=== PATIENT | female | born 1970 | race American Indian/Alaskan Native ===

== ENCOUNTER 2017-10-17 16:02 | Emergency (ER) | payer OTHER ==
[2017-10-17 16:03] VITALS: BMI 19.6
[2017-10-17 16:30] VITALS: O2SAT 100
[2017-10-17] MEDS ORDERED: Sodium Chloride 0.9% 1,000 ML IV ONE (16:53)
--- NOTE | 2017-10-17 16:57 | C.PDOC ---
History Of Present Illness Patient presents to ED c/o suprapubic cramping and dark vaginal spotting since yesterday (3 total episodes). Patient is , estimates she is 12 weeks (LMP 07/24/17). She denies vomiting, diarrhea, dysuria, fever, chest pain, SOB. PMhx of HTN, anemia Time Seen by Provider: 10/17/17 16:37 Chief Complaint (Nursing): Abdominal Pain History Per: Patient History/Exam Limitations: no limitations Onset/Duration Of Symptoms: Days (2) Current Symptoms Are (Timing): Still Present Severity: Mild Location Of Pain/Discomfort: Suprapubic Quality Of Discomfort: Cramping, "Pain" Abnormal Vaginal Bleeding: Yes Past Medical History Reviewed: Historical Data, Nursing Documentation, Vital Signs Vital Signs: Last Vital Signs Temp 98.8 F 10/17/17 18:52 Pulse 66 10/17/17 18:52 Resp 16 10/17/17 18:52 BP 135/94 H 10/17/17 18:52 Pulse Ox 100 10/17/17 19:03 - Medical History PMH: Anemia, HTN - [facility] Procedures FALLOPIAN TUBE INSUFFLAT (05/11/14) UTERINE LES DESTRUCT NEC (05/11/14) Family History: States: No Known Family Hx - Social History Hx Alcohol Use: No Hx Substance Use: No - Immunization History Hx Tetanus Toxoid Vaccination: Yes Hx Influenza Vaccination: Yes (2014) Hx Pneumococcal Vaccination: No Review Of Systems Constitutional: Negative for: Fever, Chills Cardiovascular: Negative for: Chest Pain, Palpitations Respiratory: Negative for: Shortness of Breath Gastrointestinal: Negative for: Nausea, Vomiting, Abdominal Pain, Diarrhea Genitourinary: Positive for: Vaginal Bleeding (mild spotting ), Pelvic Pain ( cramping ). Negative for: Dysuria, Vaginal Discharge Physical Exam - Physical Exam Appears: Well, Non-toxic, No Acute Distress Skin: Normal Color, Warm, Dry Oral Mucosa: Moist Cardiovascular: Rhythm Regular Respiratory: Normal Breath Sounds, No Rales, No Rhonchi, No Wheezing Gastrointestinal/Abdominal: Bowel Sounds, Soft, Tenderness (mild suprapubic TTP , (-) McBurney's) Back: Normal Inspection, No CVA Tenderness Neurological/Psych: Oriented x3 ED Course And Treatment - Laboratory Results Result Diagrams: 10/17/17 17:08 10/17/17 17:08 O2 Sat by Pulse Oximetry: 100 (RA) Pulse Ox Interpretation: Normal - CT Scan/US transvaginal US Other Rad Studies (CT/US): Read By Radiologist, Radiology Report Reviewed CT/US Interpretation: Accession No. : [id number]. Patient Name / ID : MARGARET BARNHARTENCE / [id number]. Exam Date : 10/17/2017 17:27:16 ( Approved ). Study Comment : Sex / Age : F / 47Y. Creator : Michael Isabel MD. Dictator : Michael Isabel MD. Slot Machine Repairer : Local Bulk Driver : Michael Isabel MD. Approver2 : Report Date : 10/17/2017 18:45:46. My Comment : . Date of service: 10/17/2017. PROCEDURE: First trimester ultrasound. HISTORY: , VAGINAL BLEEDING. Prior miscarriages (2 ). Beta HCG results: 7115.50 units. COMPARISON: None. TECHNIQUE: Standard protocol for this study/examination. FINDINGS: Gestational sac identified with a mean gestational age of 9 weeks. . Please note the gestational sac is deformed. [place]-rump length 1.86 cm corresponds to gestational age of 8 weeks 3 days. Cardiac activity NOT DOCUMENTED. age based on LMP 12 weeks 1 day. age based on gestational sac measurement 8 weeks 5 days. Uterine measurements 8.9 x 10.4 x 15.8 cm. Enlarged heterogeneous uterus with 2 separate and distinct fibroids. Intramural fibroid in the fundus measures 1.7 x 1.4 cm. Intramural fibroid lower uterine segment 3.6 x 3.2 cm. Closed cervix 4.09 cm. Right ovary 1.1 x 2.5 cm. Left ovary 1.9 x 3.1 cm. Simple cyst 9 x 10 mm. IMPRESSION: Evidence of intrauterine demise. Cardiac activity is not apparent. The gestational sac is deformed partially collapsed. Additional benign and/or incidental findings described above. Progress Note: Blood work, UA, transvaginal US ordered and reviewed. Patient given IV NS bolus. Reevaluation Time: 19:10 Reassessment Condition: Improved (Patient resting comfortably, in no current pain/distress. Explained all results and findings to patient. She understands she needs to follow up with her ship worker in 1-2 days, and that she should return to ED if symptoms become severe.) - Physician Consult Information Physician Contacted: Lydia Gandara Outcome Of Conversation: Discussed patient with ob call ship worker, recommends outpatoent follow up with ship worker, no intervention at this time. Disposition Counseled Patient/Family Regarding: Studies Performed, Diagnosis, Need For Followup, Rx Given - Disposition Referrals: [facility] [Outside] [facility] [Outside] Disposition: HOME/ ROUTINE Disposition Time: 19:10 Condition: STABLE Additional Instructions: FOLLOW UP WITH YOUR HOUSE WIRER WITHIN 1 WEEK USE PAIN MEDICATION NEEDED RETURN TO ER IF SYMPTOMS WORSEN Prescriptions: oxyCODONE/Acetaminophen [Percocet 5/325 mg Tab] 1 tab PO QID PRN #12 tab PRN Reason: Pain Instructions: Miscarriage (DC) Forms: [facility] (German), Work Excuse Print Language: WOLOF - Clinical Impression Clinical Impression: Missed , demise
[2017-10-17 17:03] LABS: SQUAMOUS EPITHIAL < 1 /hpf (0-5); URINE BACTERIA RARE (<OCC); URINE BILIRUBIN NEGATIVE (NEGATIVE); URINE CLARITY Clear (Clear); URINE COLOR Straw (YELLOW); URINE GLUCOSE (UA) NORMAL (Normal); URINE LEUKOCYTE ESTERASE NEG Leu/uL (Negative); URINE PROTEIN NEGATIVE (NEGATIVE); URINE UROBILINOGEN NORMAL mg/dL (0.2-1.0)
[2017-10-17 17:08] LABS: HCG,QUALITATIVE URINE POSITIVE (NEGATIVE)
[2017-10-17] MEDS ORDERED: Sodium Chloride 0.9% 1,000 ML ONE (17:11)
[2017-10-17 17:13] LABS: URINE BLOOD TRACE (NEGATIVE)
[2017-10-17 17:22] LABS: BASO % 0.3 % (0.0-2.0); EOS # 0.1 K/uL (0.0-0.7); EOS % 1.8 % (0.0-4.0); HEMOGLOBIN 12.1 g/dL (11.0-16.0); LYMPH # 1.4 K/uL (1.0-4.3); LYMPH % 32.7 % (20.0-40.0); MEAN CORPUSCULAR HEMOGLOBIN 28.9 pg (27.0-31.0); MEAN CORPUSCULAR HGB CONC 33.7 g/dL (33.0-37.0); MEAN PLATELET VOLUME 9.7 fL (7.2-11.7); MONO # 0.4 K/uL (0.0-0.8); NEUT # 2.5 K/uL (1.8-7.0); NEUT % 56.2 % (50.0-75.0); NRBC % 0.1 % (0.0-2.0); RBC 4.18 Mil/uL (3.80-5.20); WHITE BLOOD COUNT 4.4 K/uL (4.8-10.8)
[2017-10-17 17:33] LABS: MEAN CELL VOLUME 85.7 fL (81.0-99.0)
[2017-10-17 17:45] LABS: ALB/GLOB RATIO 1.4 (1.0-2.1); ALBUMIN 4.2 g/dL (3.5-5.0); ALT/SGPT 27 U/L (9-52); AST/SGOT 22 U/L (14-36); BLOOD UREA NITROGEN 8 mg/dL (7-17); CALCIUM 9.4 mg/dl (8.6-10.4); GFR AFRICAN-AMERICAN > 60; GFR NON-AFRICAN AMERICAN > 60
[2017-10-17 18:17] VITALS: RESP 16
--- NOTE | 2017-10-17 18:47 | US ---
Date of service: 10/17/2017 PROCEDURE: First trimester ultrasound HISTORY: , VAGINAL BLEEDING Prior miscarriages (2). Beta HCG results: 7115.50 units. COMPARISON: None TECHNIQUE: Standard protocol for this study/examination. FINDINGS: Gestational sac identified with a mean gestational age of 9 weeks. . Please note the gestational sac is deformed. [place]-rump length 1.86 cm corresponds to gestational age of 8 weeks 3 days. Cardiac activity NOT DOCUMENTED. age based on LMP 12 weeks 1 day. age based on gestational sac measurement 8 weeks 5 days. Uterine measurements 8.9 x 10.4 x 15.8 cm. Enlarged heterogeneous uterus with 2 separate and distinct fibroids. Intramural fibroid in the fundus measures 1.7 x 1.4 cm. Intramural fibroid lower uterine segment 3.6 x 3.2 cm. Closed cervix 4.09 cm. Right ovary 1.1 x 2.5 cm. Left ovary 1.9 x 3.1 cm. Simple cyst 9 x 10 mm. IMPRESSION: Evidence of intrauterine demise. Cardiac activity is not apparent. The gestational sac is deformed partially collapsed. Additional benign and/or incidental findings described above.
[2017-10-17 18:53] VITALS: BP 135/94; PULSE 66; TEMP 98.8
== END 2017-10-17 19:14 | disposition home or self-care (01) ==
LOC: C.ER 16:02
DX: O02.1 Missed abortion (principal)
CPT/HCPCS: 76805; 76817; 80053; 81001; 84702; 84703; 85025; 86850; 86900; 96360; 99284; J7030

== ENCOUNTER 2017-10-25 19:03 | Inpatient (IN) | payer OTHER ==
[2017-10-25 19:06] VITALS: BMI 19.6
[2017-10-25] MEDS ORDERED: Sodium Chloride 0.9% 1,000 ML IV ONE ×2 (19:56→21:35)
--- NOTE | 2017-10-25 19:56 | C.PDOC ---
History Of Present Illness The patient presents to the ED for evaluation of vaginal bleeding. Patient is currently around 12 weeks and her last menstrual period was on 07/24/17. Patient was evaluated in this ED for similar symptoms on 10/17/17 and underwent an ultrasound which showed likely demise. Patient returns to the ED because her bleeding has continued and she has some abdominal cramping. She denies fever, chills, nausea, vomiting. Time Seen by Provider: 10/25/17 19:56 Chief Complaint (Nursing): Female Genitourinary History Per: Patient History/Exam Limitations: no limitations Onset/Duration Of Symptoms: Days Current Symptoms Are (Timing): Still Present Severity: Moderate Pain Scale Rating Of: 3 Location Of Pain/Discomfort: Suprapubic Radiation Of Pain To:: None Quality Of Discomfort: Cramping Associated Symptoms: denies: Fever, Chills, Nausea, Vomiting Exacerbating Factors: None Alleviating Factors: None Last Bowel Movement: Today Recent travel outside of the [place]: No Additional History Per: Patient Abnormal Vaginal Bleeding: Yes Last Menstral Period: 07/24/2017 Past Medical History Reviewed: Historical Data, Nursing Documentation, Vital Signs Vital Signs: Last Vital Signs Temp 98.6 F 10/25/17 19:22 Pulse 93 H 10/25/17 19:22 Resp 20 10/25/17 19:22 BP 132/89 10/25/17 19:22 Pulse Ox 100 10/25/17 21:04 - Medical History PMH: Anemia, HTN Denies: Chronic Kidney Disease Surgical History: No Surg Hx - [facility] Procedures FALLOPIAN TUBE INSUFFLAT (05/11/14) UTERINE LES DESTRUCT NEC (05/11/14) Family History: States: Unknown Family Hx - Social History Hx Alcohol Use: No Hx Substance Use: No - Immunization History Hx Tetanus Toxoid Vaccination: Yes Hx Influenza Vaccination: Yes (2014) Hx Pneumococcal Vaccination: No Review Of Systems Constitutional: Negative for: Fever, Chills Cardiovascular: Negative for: Chest Pain, Palpitations Respiratory: Negative for: Cough, Shortness of Breath Gastrointestinal: Positive for: Abdominal Pain. Negative for: Nausea, Vomiting Genitourinary: Positive for: Vaginal Bleeding. Negative for: Dysuria, Frequency , Hematuria Musculoskeletal: Negative for: Back Pain Skin: Negative for: Rash, Lesions, Jaundice, Bruising Neurological: Negative for: Weakness, Numbness Physical Exam - Physical Exam Appears: Non-toxic, No Acute Distress Skin: Warm, Dry Head: Normacephalic Eye(s): bilateral: Normal Inspection Oral Mucosa: Moist Neck: Supple Chest: Symmetrical, No Deformity, No Tenderness Cardiovascular: Rhythm Regular, No Murmur Respiratory: No Rales, No Rhonchi, No Wheezing Gastrointestinal/Abdominal: Tenderness (suprapubic ), No Guarding, No Rebound Extremity: Normal ROM, Capillary Refill (less than 2 seconds ) Neurological/Psych: Oriented x3 Gait: Steady ED Course And Treatment - Laboratory Results Result Diagrams: 10/25/17 19:57 10/25/17 19:57 O2 Sat by Pulse Oximetry: 100 (on RA) Pulse Ox Interpretation: Normal Progress Note: Bloodwork, urinalysis, and OB Transvaginal US ordered and reviewed. Ampicillin IVP, Gentamicin IVP, and IV Fluids given. Disposition Discussed With DrDanielle: Any Foley Comment[facility] took over the care at 9:19PM Counseled Patient/Family Regarding: Studies Performed, Diagnosis - Disposition Disposition: HOSPITALIZED Disposition Time: 19:56 Condition: FAIR Forms: [facility] (Wallisian) - Clinical Impression Clinical Impression: Abdominal pain, Incomplete - Scribe Statement The provider has reviewed the documentation as recorded by the Scribe (Lyndsay Foley) Provider Attestation: All medical record entries made by the Scribe were at my direction and personally dictated by me. I have reviewed the chart and agree that the record accurately reflects my personal performance of the history, physical exam, medical decision making, and the department course for this patient. I have also personally directed, reviewed, and agree with the discharge instructions and disposition. Decision To Admit - Pt Status Changed To: Hospital Disposition Of: Inpatient - Admit Certification Admit to Inpatient:: After my assessment, the patient will require hospitalization for at least two midnights. This is because of the severity of symptoms shown, intensity of services needed, and/or the medical risk in this patient being treated as an outpatient. - InPatient: Physician Admission Certification:: After my assessment, the patient will require hospitalization for at least two midnights. This is because of the severity of symptoms shown, intensity of services needed, and/or the medical risk in this patient being treated as an outpatient. - . Bed Request Type: Regular Admitting Physician: Any Foley Patient Diagnosis: Abdominal pain, Incomplete
[2017-10-25 20:06] LABS: BASO % 0.6 % (0.0-2.0); EOS # 0.1 K/uL (0.0-0.7); EOS % 1.4 % (0.0-4.0); HEMOGLOBIN 8.4 g/dL (11.0-16.0); LYMPH # 1.5 K/uL (1.0-4.3); LYMPH % 22.9 % (20.0-40.0); MEAN CELL VOLUME 86.3 fL (81.0-99.0); MEAN CORPUSCULAR HEMOGLOBIN 29.9 pg (27.0-31.0); MEAN CORPUSCULAR HGB CONC 34.7 g/dL (33.0-37.0); MEAN PLATELET VOLUME 9.8 fL (7.2-11.7); MONO # 0.5 K/uL (0.0-0.8); NEUT # 4.4 K/uL (1.8-7.0); NEUT % 67.1 % (50.0-75.0); NRBC % 0.4 % (0.0-2.0); RBC 2.8 Mil/uL (3.80-5.20); RED CELL DISTRIBUTION WIDTH 15.3 % (11.5-14.5); WHITE BLOOD COUNT 6.6 K/uL (4.8-10.8)
[2017-10-25] MEDS ORDERED: AMPicillin 1 GM in Sodium Chloride 0.9% 100 ML IVPB STA (20:09)
[2017-10-25] MEDS ORDERED: Gentamicin 80 mg/2mL Inj. IVPB STA (20:10)
[2017-10-25 20:14] LABS: SQUAMOUS EPITHIAL 1 /hpf (0-5); URINE BILIRUBIN NEGATIVE (NEGATIVE); URINE BLOOD 3+ (NEGATIVE); URINE CLARITY Clear (Clear); URINE COLOR Yellow (YELLOW); URINE GLUCOSE (UA) NORMAL (Normal); URINE LEUKOCYTE ESTERASE 1+ Leu/uL (Negative); URINE PROTEIN NEGATIVE (NEGATIVE); URINE UROBILINOGEN NORMAL mg/dL (0.2-1.0)
[2017-10-25] MEDS ORDERED: Sodium Chloride 0.9% 250 ML IV ONE (20:24)
[2017-10-25 20:25] LABS: ALB/GLOB RATIO 1.4 (1.0-2.1); ALBUMIN 4.2 g/dL (3.5-5.0); ALT/SGPT 36 U/L (9-52); AST/SGOT 28 U/L (14-36); BLOOD UREA NITROGEN 11 mg/dL (7-17); CALCIUM 9.4 mg/dl (8.6-10.4); GFR AFRICAN-AMERICAN > 60; GFR NON-AFRICAN AMERICAN > 60
[2017-10-25 20:30] LABS: INR 1.1; PROTHROMBIN TIME 11.5 SECONDS (9.7-12.2)
[2017-10-25] MEDS ORDERED: GENTAMICIN IVPB ONE (20:30)
[2017-10-25] MEDS ORDERED: SODIUM CHLORIDE 0.9% IVPB ONE (20:30)
[2017-10-26 00:16] VITALS: RESP 20
--- NOTE | 2017-10-26 07:22 | CP.PCM.HP ---
History of Present Illness - History of Present Illness History of Present Illness: 47y/o with iocmplete abortoin 9 weeks decieded on conservatig manamgnet owever over past week has had increased bleedign pssing though clts and fever pt was adivsed to come to ER OB: [id number] SOLAR PANEL INSTALLATION SUPERVISOR: fibroids PMH: HTN, Anemia PSH: Myomecotmy FHS: non cotribotyr MEDS: none NKDASH:X negaive etohg/toboc durgs Present on Admission - Present on Admission Any Indicators Present on Admission: No Review of Systems - Review of Systems All systems: reviewed and no additional remarkable complaints except - Constitutional Constitutional: As Per HPI - EENT Eyes: As Per HPI - Breasts Breasts: As Per HPI - Gastrointestinal Gastrointestinal: As Per HPI - Genitourinary Genitourinary: As Per HPI - Reproductive: Female Reproductive:Female: As Per HPI - Menstruation Menstruation: Abnormal Vaginal Bleeding. absent: As Per HPI - Musculoskeletal Musculoskeletal: As Per HPI - Integumentary Integumentary: absent: As Per HPI, Acne, Alopecia, Bleeding Lesions, Change in Hair, Change in Nails, Change in Pigmentation, Changing Lesions, Dry Skin, Erythema, Furuncle, Hirsutism, Lesions, New Lesions, Non-Healing Lesions, Photosensitivity, Pruritus, Rash, Skin Pain, Skin Ulcer, Sores, Striae, Swelling , Unusual Bruising, Wounds, Jaundice, Other - Neurological Neurological: absent: As Per HPI, Abnormal Gait, Abnormal Hearing, Abnormal Movements, Abnormal Speech, Behavioral Changes, Burning Sensations, Confusion, Convulsions, Disequilibrium, Dizziness, Numbness, Focal Weakness, Frequent Falls , Headaches, Lack of Coordination, Loss of Vision, Memory Loss, Paresthesias, Radicular Pain, Restless Legs, Sensory Deficit, Syncope, Tingling, Tremor, Vertigo, Weakness, Other Visual Disturbances, Other - Psychiatric Psychiatric: absent: As Per HPI, Abnormal Sleep Pattern, Anhedonia, Anxiety, Auditory Hallucinations, Behavioral Changes, Change in Appetite, Change in Libido, Confusion, Depression, Difficulty Concentrating, Hallucinations, Homicidal Ideation, Hopelessness, Irritability, Memory Loss, Mood Swings, Panic Attacks, Paranoia, Suicidal Ideation, Visual Hallucinations, Tactile Hallucinations, Other Past Patient History - Infectious Disease Hx of Infectious Diseases: None - Tetanus Immunizations Tetanus Immunization: Unknown - Past Medical History & Family History Past Medical History?: Yes - Past Social History Smoking Status: Never Smoked - CARDIAC Hx Hypertension: Yes - PULMONARY Hx Respiratory Disorders: No - NEUROLOGICAL Hx Neurological Disorder: No - HEENT Hx HEENT Problems: Yes Other/Comment: Wears glasses - RENAL Hx Chronic Kidney Disease: No - ENDOCRINE/METABOLIC Hx Endocrine Disorders: No - HEMATOLOGICAL/ONCOLOGICAL Hx Anemia: Yes - INTEGUMENTARY Hx Dermatological Problems: No - MUSCULOSKELETAL/RHEUMATOLOGICAL Hx Falls: No - GASTROINTESTINAL Hx Gastrointestinal Disorders: No - GENITOURINARY/GYNECOLOGICAL Hx Genitourinary Disorders: No - PSYCHIATRIC Hx Substance Use: No - SURGICAL HISTORY Hx Surgeries: Yes Other/Comment: myomectomy - ANESTHESIA Hx Anesthesia: Yes Hx Anesthesia Reactions: No Meds Allergies/Adverse Reactions: Allergies Allergy/AdvReac Type Severity Reaction Status Date / Time No Known Allergies Allergy Verified 10/25/17 19:27 Physical Exam - Constitutional Appears: Well, Non-toxic - Head Exam Head Exam: ATRAUMATIC, NORMAL INSPECTION - Eye Exam Eye Exam: EOMI - ENT Exam ENT Exam: Mucous Membranes Moist, Normal Exam - Neck Exam Neck exam: Positive for: Normal Inspection - Respiratory Exam Respiratory Exam: Clear to Auscultation Bilateral, NORMAL BREATHING PATTERN - Cardiovascular Exam Cardiovascular Exam: +S1, +S2 - GI/Abdominal Exam GI & Abdominal Exam: Soft, Tenderness Additional comments: non guaridn no reoubdn tneder o rigdiyt - Exam External exam: NORMAL EXTERNAL EXAM Additional comments: External genital; blodo on perien Vagna; drak red blood clots cervix; 1cm dlated , NT UTeurs; non tende rANde; x/periena Gorsly normla, non tennder Results - Vital Signs Recent Vital Signs: Last Vital Signs Temp 97.6 F 10/26/17 06:33 Pulse 76 10/26/17 06:33 Resp 20 10/26/17 06:33 BP 108/76 10/26/17 06:33 Pulse Ox 100 10/26/17 06:33 - Labs Result Diagrams: 10/25/17 19:57 10/25/17 19:57 Labs: Laboratory Results - last 24 hr 10/25/17 10/25/17 10/25/17 19:57 19:57 19:57 WBC 6.6 RBC 2.80 L Hgb 8.4 L D Hct 24.2 L MCV 86.3 MCH 29.9 MCHC 34.7 RDW 15.3 H Plt Count 169 MPV 9.8 Neut % (Auto) 67.1 Lymph % (Auto) 22.9 [place] % (Auto) 8.0 Eos % (Auto) 1.4 Baso % (Auto) 0.6 Neut # (Auto) 4.4 Lymph # (Auto) 1.5 [place] # (Auto) 0.5 Eos # (Auto) 0.1 Baso # (Auto) 0.0 PT 11.5 INR 1.1 APTT 29 Sodium Potassium Chloride Carbon Dioxide Anion Gap BUN Creatinine Est GFR ( Amer) Est GFR (Non-Af Amer) Random Glucose Calcium Total Bilirubin AST ALT Alkaline Phosphatase Total Protein Albumin Globulin Albumin/Globulin Ratio Beta HCG, Quant Urine Color Yellow Urine Clarity Clear Urine pH 7.0 Ur Specific [place] 1.011 Urine Protein Negative Urine Glucose (UA) Normal Urine Ketones Negative Urine Blood 3+ H Urine Nitrate Negative Urine Bilirubin Negative Urine Urobilinogen Normal Ur Leukocyte Esterase 1+ H Urine WBC (Auto) 8 H Urine RBC (Auto) 13 H Ur Squamous Epith Cells 1 Blood Type Antibody Screen 10/25/17 10/25/17 19:57 19:57 WBC RBC Hgb Hct MCV MCH MCHC RDW Plt Count MPV Neut % (Auto) Lymph % (Auto) [place] % (Auto) Eos % (Auto) Baso % (Auto) Neut # (Auto) Lymph # (Auto) [place] # (Auto) Eos # (Auto) Baso # (Auto) PT INR APTT Sodium 139 Potassium 3.8 Chloride 102 Carbon Dioxide 27 Anion Gap 14 BUN 11 Creatinine 0.7 Est GFR ( Amer) > 60 Est GFR (Non-Af Amer) > 60 Random Glucose 96 Calcium 9.4 Total Bilirubin 0.6 AST 28 ALT 36 Alkaline Phosphatase 57 Total Protein 7.3 Albumin 4.2 Globulin 3.1 Albumin/Globulin Ratio 1.4 Beta HCG, Quant 634.41 Urine Color Urine Clarity Urine pH Ur Specific [place] Urine Protein Urine Glucose (UA) Urine Ketones Urine Blood Urine Nitrate Urine Bilirubin Urine Urobilinogen Ur Leukocyte Esterase Urine WBC (Auto) Urine RBC (Auto) Ur Squamous Epith Cells Blood Type A POSITIVE Antibody Screen Negative - Imaging and Cardiology US - abdomen Status: Image reviewed by me, Report reviewed by me Assessment & Plan (1) Incomplete Assessment and Plan: 1/ Admit to SOLAR PANEL INSTALLATION SUPERVISOR 2. NPO, IVF 3. Preo op labs 4. TVSU 5. R/b/a/i suctoin dc patient Status: Acute
[2017-10-26] MEDS ORDERED: Doxycycline 100 mg Inj ONE (07:35)
[2017-10-26] MEDS ORDERED: Oxytocin 10 Units/ml Inj ONE (07:36)
[2017-10-26] MEDS ORDERED: Propofol 10 mg/ml Inj (20 ML) ONE (07:43)
[2017-10-26] MEDS ORDERED: Midazolam 2 MG/2 ML VIAL ONE (07:43)
[2017-10-26] MEDS ORDERED: HYDROmorphone 0.5 mg/0.5 ml ISec IVP PRN ×2 (08:09→08:12)
[2017-10-26] MEDS ORDERED: Lactated Ringer's 1,000 ML IV SCH (08:15)
--- NOTE | 2017-10-26 08:42 | PCM.SURG1 ---
Surgeon's Initial Post Op Note - Surgeon's Notes Surgeon: Any Foley MD Brim Shaper: none Type of Anesthesia: General LMA Pre-Operative Diagnosis: Incomplete 12 weeks Operative Findings: 12 week size anterir utuer, cervil os dilated 3cm with moderate amouts of products at cervial os, 8 curved suction curretted used , no compliatins Post-Operative Diagnosis: same as above Operation Performed: Suction Dilation and UCrrettage Specimen/Specimens Removed: products of concpetoin Estimated Blood Loss: EBL {In ML}: 10 Blood Products Given: N/A Drains Used: No Drains Post-Op Condition: Good Date of Surgery/Procedure: 10/26/17 Time of Surgery/Procedure: 08:00
--- NOTE | 2017-10-26 08:44 | CP.PCM.DIS ---
Provider - Provider Date of Admission: 10/25/17 21:17 Attending physician: Any Foley MD Time Spent in preparation of Discharge (in minutes): 30 Diagnosis - Discharge Diagnosis (1) Incomplete Status: Acute Hospital Course - Lab Results Lab Results: Most Recent Lab Values WBC 6.6 K/uL (4.8-10.8) 10/25/17 19:57 RBC 2.80 Mil/uL (3.80-5.20) L 10/25/17 19:57 Hgb 8.4 g/dL (11.0-16.0) L D 10/25/17 19:57 Hct 24.2 % (34.0-47.0) L 10/25/17 19:57 MCV 86.3 fL (81.0-99.0) 10/25/17 19:57 MCH 29.9 pg (27.0-31.0) 10/25/17 19:57 MCHC 34.7 g/dL (33.0-37.0) 10/25/17 19:57 RDW 15.3 % (11.5-14.5) H 10/25/17 19:57 Plt Count 169 K/uL (130-400) 10/25/17 19:57 MPV 9.8 fL (7.2-11.7) 10/25/17 19:57 Neut % (Auto) 67.1 % (50.0-75.0) 10/25/17 19:57 Lymph % (Auto) 22.9 % (20.0-40.0) 10/25/17 19:57 [place] % (Auto) 8.0 % (0.0-10.0) 10/25/17 19:57 Eos % (Auto) 1.4 % (0.0-4.0) 10/25/17 19:57 Baso % (Auto) 0.6 % (0.0-2.0) 10/25/17 19:57 Neut # (Auto) 4.4 K/uL (1.8-7.0) 10/25/17 19:57 Lymph # (Auto) 1.5 K/uL (1.0-4.3) 10/25/17 19:57 [place] # (Auto) 0.5 K/uL (0.0-0.8) 10/25/17 19:57 Eos # (Auto) 0.1 K/uL (0.0-0.7) 10/25/17 19:57 Baso # (Auto) 0.0 K/uL (0.0-0.2) 10/25/17 19:57 PT 11.5 SECONDS (9.7-12.2) 10/25/17 19:57 INR 1.1 10/25/17 19:57 APTT 29 SECONDS (21-34) 10/25/17 19:57 Sodium 139 mmol/L (132-148) 10/25/17 19:57 Potassium 3.8 mmol/L (3.6-5.2) 10/25/17 19:57 Chloride 102 mmol/L (98-107) 10/25/17 19:57 Carbon Dioxide 27 mmol/L (22-30) 10/25/17 19:57 Anion Gap 14 (10-20) 10/25/17 19:57 BUN 11 mg/dL (7-17) 10/25/17 19:57 Creatinine 0.7 mg/dL (0.7-1.2) 10/25/17 19:57 Est GFR ( Amer) > 60 10/25/17 19:57 Est GFR (Non-Af Amer) > 60 10/25/17 19:57 Random Glucose 96 mg/dL (65-105) 10/25/17 19:57 Calcium 9.4 mg/dl (8.6-10.4) 10/25/17 19:57 Total Bilirubin 0.6 mg/dL (0.2-1.3) 10/25/17 19:57 AST 28 U/L (14-36) 10/25/17 19:57 ALT 36 U/L (9-52) 10/25/17 19:57 Alkaline Phosphatase 57 U/L (38-126) 10/25/17 19:57 Total Protein 7.3 g/dL (6.3-8.3) 10/25/17 19:57 Albumin 4.2 g/dL (3.5-5.0) 10/25/17 19:57 Globulin 3.1 gm/dL (2.2-3.9) 10/25/17 19:57 Albumin/Globulin Ratio 1.4 (1.0-2.1) 10/25/17 19:57 Beta HCG, Quant 634.41 mIU/ML 10/25/17 19:57 Urine Color Yellow (YELLOW) 10/25/17 19:57 Urine Clarity Clear (Clear) 10/25/17 19:57 Urine pH 7.0 (5.0-8.0) 10/25/17 19:57 Ur Specific [place] 1.011 (1.003-1.030) 10/25/17 19:57 Urine Protein Negative mg/dL (NEGATIVE) 10/25/17 19:57 Urine Glucose (UA) Normal mg/dL (Normal) 10/25/17 19:57 Urine Ketones Negative mg/dL (NEGATIVE) 10/25/17 19:57 Urine Blood 3+ (NEGATIVE) H 10/25/17 19:57 Urine Nitrate Negative (NEGATIVE) 10/25/17 19:57 Urine Bilirubin Negative (NEGATIVE) 10/25/17 19:57 Urine Urobilinogen Normal mg/dL (0.2-1.0) 10/25/17 19:57 Ur Leukocyte Esterase 1+ [place]/uL (Negative) H 10/25/17 19:57 Urine WBC (Auto) 8 /hpf (0-5) H 10/25/17 19:57 Urine RBC (Auto) 13 /hpf (0-3) H 10/25/17 19:57 Ur Squamous Epith Cells 1 /hpf (0-5) 10/25/17 19:57 Blood Type A POSITIVE 10/25/17 19:57 Antibody Screen Negative 10/25/17 19:57 Discharge Exam - Head Exam Head Exam: ATRAUMATIC, NORMAL INSPECTION - ENT Exam ENT Exam: Mucous Membranes Dry - Respiratory Exam Respiratory Exam: Clear to PA & Lateral, UNREMARKABLE - Cardiovascular Exam Cardiovascular Exam: REGULAR RHYTHM, +S1, +S2 - GI/Abdominal Exam GI & Abdominal Exam: Normal Bowel Sounds, Soft - Exam External exam: NORMAL EXTERNAL EXAM Speculum exam: NORMAL SPECULUM EXAM Discharge Plan - Follow Up Plan Condition: FAIR Disposition: HOME/ ROUTINE Additional Instructions: Nothng per vagian, no sex ,no douching no tamponx s 2 week if fever, heavy bleeidng moer than 2 pads/ hour go to ER also if lightheadnes dizzyness, chestp pain , sob
--- NOTE | 2017-10-26 09:03 | US ---
Pelvic ultrasound History: 12 weeks . demise. Comparison: Ultrasound dated 10/17/2017 Technique: Real-time sonography was performed through the pelvis utilizing transabdominal and transvaginal techniques. Findings: Uterus: 14.9 x 6.6 x 8.6 centimeters. Heterogeneous echotexture. Anteverted. Multiple heterogeneous lesions suggestive for fibroid lesions: Mid to lower uterine segment measuring 3.2 x 3.3 x 4.5 centimeters. Fundus measuring 1.8 x 1.5 x 1.6 centimeters. Fundus measuring 2.2 x 1.9 x 2.4 centimeters. Thickened and heterogeneous endometrium measuring 2.7 centimeters. Endometrium demonstrates increased vascularity which is concerning for retained products of conception. No intrauterine gestation is identified. No free fluid in the pelvic cul-de-sac. Right ovary: 2.8 x 1.4 x 2.3 centimeters. Normal flow. Left ovary: 2.4 x 1.6 x 2.4 centimeters. Normal flow. Heterogeneous cyst measuring 1.1 x 0.9 x 1.3 centimeters. Small amount of free fluid adjacent to the left ovary. Impression: No intrauterine gestation is identified. Endometrium is thickened measuring 2.7 centimeters. Endometrium is heterogeneous in echotexture with increased vascularity concerning for retained products of conception. Clinical correlation. Multiple intramural uterine fibroids, the largest of which measures 4.5 centimeters in the mid to lower uterine segment. Small amount of free fluid adjacent to the left ovary. Additional findings as above. Correlation with SENIOR PATROL AGENT consultation is recommended if clinically indicated. These findings were preliminarily reported by Dr. Daniel Santana from [employer] at 11:05 p.m. on 10/25/2017.
[2017-10-26 10:25] VITALS: BP 111/74; PULSE 83; TEMP 97; O2SAT 97
--- NOTE | 2017-10-26 20:56 | OP ---
Copied To: Any Foley MD Attending MD: Any Foley MD PROCEDURE DATE: 10/26/2017 SURGEON: Any Foley MD [employer] INSPECTOR: None. TYPE OF ANESTHESIA: General LMA. PREOPERATIVE DIAGNOSIS: Incomplete at 12 weeks. OPERATIVE FINDINGS: 12 weeks size anteverted uterus, cervical os dilated to 8 curved suction curette used. POSTOPERATIVE DIAGNOSIS: Incomplete at 12 weeks. COMPLICATION: None. OPERATION PERFORMED: Suction dilatation and curettage. SPECIMEN: Products of conception. ESTIMATED BLOOD LOSS: 10 mL. BLOOD PRODUCTS: None. DESCRIPTION OF PROCEDURE: Patient is a 47-year-old G1, para 0 that subsequently experienced a missed , decided for medical management for one week with conservative management, but over the past week has had heavy bleeding, starting to feel lightheaded. Patient was advised to come to the emergency room where she was diagnosed with an incomplete . The risks, benefits, alternatives, and indications of suction dilatation and curettage were discussed with the patient, not limited to bleeding, infection, uterine perforation, Asherman syndrome with possible retained products. Patient is given general anesthesia. Once found to be in adequate, she was placed on operating table in dorsal supine position. The patient was given preoperative prophylactic antibiotic of doxycycline. The patient was then prepped and draped in usual sterile fashion. Time-out confirmed correct patient and correct procedure. A bimanual exam was performed with above mentioned findings. Smith retractor was placed in the anterior and posterior fornix of the vagina. Single tooth tenaculum was placed in the anterior lip of the cervix. Products that were grossly located at the cervical os were removed with a polyp forceps and sent to Pathology cytogenetic. Following this, the cervix was sequentially dilated to allow for introduction of 8 mm curved suction curette which was advanced to the fundus. The suction curette was then actively rotated in 360 degrees until all products removed. Following this, a gentle curettage was done and the remaining products removed. The suction curette was then advanced and was done three times until all products removed suction curette. All instrument were removed. There was good hemostasis at the tenaculum puncture site. At the end of the procedure, all needle, sponge, and instrument counts were noted and correct x2. The patient tolerated the procedure well and was transferred to the recovery room in stable condition. Any Foley MD [facility] # [id number]
== END 2017-10-26 12:30 | disposition home or self-care (01) | DRG 770 ==
LOC: C.ER 19:03 → C.9E 21:17 → C.4M 21:59
PROVIDERS: ADMIT Obstetrics & Gynecology; ATTEND Obstetrics & Gynecology
PROC: 10D17ZZ Extraction of Products of Conception, Retained, Via Natural or Artificial Opening (ICD-10-PCS; principal; 2017-10-26 07:30)
DX: O03.4 Incomplete spontaneous abortion without complication (principal); Z3A.12 12 weeks gestation of pregnancy